=== PATIENT | male | born 1945 | race Caucasian/White ===

== ENCOUNTER 2022-12-30 20:38 | Inpatient (IN) | payer MEDICARE ==
[~2022-12-30 20:38] MED LIST: Iopamidol-370 76% 500 ML MDV (1 ML CHARGE) ONE
[2022-12-30] MEDS ORDERED: Dexamethasone 4 mg/ml Vial ONE (21:15)
[2022-12-30] MEDS ORDERED: Ondansetron PF 4 MG/2 ML Vial ONE (21:15)
[2022-12-30] MEDS ORDERED: Acetaminophen 325 MG/10.15 ML UDCUP ONE (21:36)
[2022-12-30 21:42] LABS: Actual Bicarbonate (HCO3a) 22.4 mEq/L (22-28); Base Excess (BEa) -0.3 mEq/L (-2.0 to +3.0); CO2 Tension 31.6 mmHg (35.0-45.0); Calcium, Ionized (arterial) 1.11 mmol/L (1.12-1.30); Carboxyhemoglobin (COHb) 0.7 gm% (0.0-3.0); Hematocrit-ABG 45 % (42.0-52.0); Hemoglobin (Hb) 15.2 g/dL (14.0-18.0); O2 Tension (PaO2), arterial 68.2 mmHg (> 70.0); Potassium - ABG Lab 3.31 mmol/L (3.70-5.30); pH, Arterial 7.469 (7.35-7.45)
[2022-12-30 21:43] LABS: Puncture Site RRA
[2022-12-30 21:50] LABS: #Basophils 0.1 thou/uL (0.0-0.2); #Monocytes 1.4 thou/uL (0.11-0.59); #Neutrophils 11.5 thou/uL (1.40-6.50); %Basophils 0.6 % (0.0-1.0); %Lymphocytes 9.1 % (21.0-51.0); Hemoglobin 14.9 g/dL (14.0-18.0); INR-International Normal Ratio 1.1; Mean Corpuscular HGB CONC 33.6 g/dL (32.0-36.0); Mean Corpuscular Volume 89.1 fl (78.0-98.0); Mean Platelet Volume 12.9 fL (7.4-10.4); Platelet Count 268 10x3/uL (130-400); Prothrombin Time 14.7 sec (12.0-14.7); RBC Distribution Width 13.7 % (11.5-14.5); Red Blood Cell (RBC) Count 4.97 mill/uL (4.70-6.10); White Blood Cell (WBC) Count 14.4 10x3/uL (4.8-10.8)
[2022-12-30 21:51] LABS: PTT 32.9 sec (22.9-36.1)
[2022-12-30 21:53] LABS: D-Dimer Test 0.72 *mcg/mL (0.27-0.43)
[2022-12-30] MEDS ORDERED: cefTRIAXone (ROCEPHIN) 2 GM VIAL ONE (23:01)
[2022-12-30 23:13] LABS: Albumin 3.9 g/dL (3.4-4.8)
[2022-12-30 23:14] LABS: Chloride 101 mmol/L (98-107); Potassium 3.4 mmol/L (3.5-5.1); Sodium 135 mmol/L (136-145)
[2022-12-30 23:15] LABS: Calcium 9.4 mg/dL (7.8-10.44)
[2022-12-30 23:16] LABS: Glucose 143 mg/dL (83-110); Protein, Total 6.9 g/dL (5.8-8.1)
[2022-12-30 23:17] LABS: Anion Gap 17 mmol/L (10-20); Carbon Dioxide 20 mmol/L (23-31)
[2022-12-30 23:18] LABS: Bilirubin, Total 0.4 mg/dL (0.2-1.2)
[2022-12-30 23:19] LABS: Alkaline Phosphatase 75 U/L (40-110); Calc. Creatinine Clearance 0 mL/min (70-130); Estimated GFR 90
[2022-12-30 23:20] LABS: BUN (Urea Nitrogen) 11 mg/dL (8.4-25.7)
[2022-12-30 23:21] LABS: AST (SGOT) 20 U/L (5-34)
[2022-12-30 23:22] LABS: ALT (SGPT) 19 U/L (8-55)
[2022-12-30 23:50] LABS: CKMB 2.8 ng/mL (0-6.6)
[2022-12-31] MEDS ORDERED: Aspirin Chewable 81 MG TAB ONE (00:06)
[2022-12-31] MEDS ORDERED: Azithromycin 500 MG VIAL ONE (00:06)
[2022-12-31] MEDS ORDERED: Albuterol 200 PUFF (6.7GM INHALER) INH PRN (00:26)
[2022-12-31] MEDS ORDERED: Ondansetron PF 4 MG/2 ML Vial IVP PRN (00:26)
[2022-12-31] MEDS ORDERED: Benzonatate 100 MG CAP PO PRN (00:26)
[2022-12-31] MEDS ORDERED: Ondansetron ODT 4 MG TAB PO PRN (00:26)
[2022-12-31] MEDS ORDERED: Acetaminophen 650 MG Suppository PR PRN (00:26)
[2022-12-31] MEDS ORDERED: Acetaminophen 325 MG TAB PO PRN (00:26)
[2022-12-31 00:57] LABS: Lactic Acid 1.8 mmol/L (0.5-2.2)
[2022-12-31 01:06] VITALS: BMI 10.5
[2022-12-31 01:06] LABS: Critical Call Chem Troponin I RESULT DECREASING; Troponin I 0.903 ng/mL (< 0.028)
[2022-12-31 02:40] LABS: SARS-CoV-2 NAA Rapid Test DETECTED (NotDetected)
[2022-12-31 04:21] LABS: #Basophils 0.1 thou/uL (0.0-0.2); #Monocytes 0.4 thou/uL (0.11-0.59); #Neutrophils 10.1 thou/uL (1.40-6.50); %Basophils 0.4 % (0.0-1.0); %Eosinophils 0.1 % (0.0-10.0); %Lymphocytes 11.8 % (21.0-51.0); %Neutrophils 84.4 % (42.0-75.0); Hemoglobin 15.3 g/dL (14.0-18.0); Mean Corpuscular HGB CONC 32.6 g/dL (32.0-36.0); Mean Corpuscular Hemoglobin 30.2 pg (27.0-31.0); Mean Platelet Volume 12.2 fL (7.4-10.4); Platelet Count 228 10x3/uL (130-400); RBC Distribution Width 13.8 % (11.5-14.5); Red Blood Cell (RBC) Count 5.07 mill/uL (4.70-6.10)
[2022-12-31 04:45] LABS: Anion Gap 19 mmol/L (10-20); BUN (Urea Nitrogen) 10 mg/dL (8.4-25.7); Calc. Creatinine Clearance 40 mL/min (70-130); Calcium 9.2 mg/dL (7.8-10.44); Carbon Dioxide 18 mmol/L (23-31); Chloride 104 mmol/L (98-107); Estimated GFR 91; Glucose 166 mg/dL (83-110); Potassium 4.7 mmol/L (3.5-5.1); Sodium 136 mmol/L (136-145)
[2022-12-31 04:47] LABS: Mean Corpuscular Volume 92.7 fl (78.0-98.0)
[2022-12-31 05:06] LABS: Critical Call Chem Troponin I RESULT DECREASING; Troponin I 0.737 ng/mL (< 0.028)
[2022-12-31] MEDS ORDERED: REMDESIVIR 200 MG in Sodium Chloride 0.9% 250 ML 210 ML IV SCH (09:00)
[2022-12-31] MEDS: Zinc Sulfate 220 MG CAP PO SCH (10:57)
[2022-12-31] MEDS: Ascorbic Acid 500 mg Chewable Tablet PO SCH (10:57)
[2022-12-31] MEDS: Dexamethasone 4 mg/ml Vial SLOW IVP SCH (10:58)
[2022-12-31] MEDS: Cholecalciferol (Vitamin D3) 400 UNITS TAB PO SCH (10:58)
[2022-12-31] MEDS ORDERED: levETIRAcetam 100 mg/ml Oral Solution PO SCH (12:30)
[2022-12-31] MEDS ORDERED: levETIRAcetam 500 mg/5 ml Oral Solution PO SCH (13:45)
[2022-12-31] MEDS: levETIRAcetam 500 mg/5 ml Oral Solution PO SCH (20:37)
[2022-12-31] MEDS: cefTRIAXone\\ROCEPHIN 1 GM in Sodium Chloride 0.9% 100 ML IVPB SCH (23:22)
[2023-01-01 04:20] LABS: #Monocytes 1.4 thou/uL (0.11-0.59); #Neutrophils 14.5 thou/uL (1.40-6.50); %Basophils 0.1 % (0.0-1.0); %Monocytes 7.8 % (0.0-10.0); %Neutrophils 81.6 % (42.0-75.0); Hemoglobin 13.2 g/dL (14.0-18.0); Mean Corpuscular HGB CONC 32.4 g/dL (32.0-36.0); Mean Corpuscular Hemoglobin 29.9 pg (27.0-31.0); Mean Corpuscular Volume 92.5 fl (78.0-98.0); Mean Platelet Volume 12.9 fL (7.4-10.4); Platelet Count 235 10x3/uL (130-400); RBC Distribution Width 13.6 % (11.5-14.5); Red Blood Cell (RBC) Count 4.41 mill/uL (4.70-6.10); White Blood Cell (WBC) Count 17.7 10x3/uL (4.8-10.8)
[2023-01-01 05:48] LABS: Potassium 3.7 mmol/L (3.5-5.1); Sodium 138 mmol/L (136-145)
[2023-01-01 05:49] LABS: Calcium 9.4 mg/dL (7.8-10.44); Glucose 151 mg/dL (83-110)
[2023-01-01 05:51] LABS: Anion Gap 18 mmol/L (10-20); Carbon Dioxide 20 mmol/L (23-31)
[2023-01-01 05:53] LABS: Calc. Creatinine Clearance 37 mL/min (70-130); Estimated GFR 89
[2023-01-01 05:54] LABS: BUN (Urea Nitrogen) 17 mg/dL (8.4-25.7)
[2023-01-01 06:06] LABS: Chloride 104 mmol/L (98-107)
[2023-01-01] MEDS: Cholecalciferol (Vitamin D3) 400 UNITS TAB PO SCH (08:55)
[2023-01-01] MEDS: Ascorbic Acid 500 mg Chewable Tablet PO SCH (08:55)
[2023-01-01] MEDS: Zinc Sulfate 220 MG CAP PO SCH (08:55)
[2023-01-01] MEDS: levETIRAcetam 500 mg/5 ml Oral Solution PO SCH ×2 (08:56→21:29)
[2023-01-01] MEDS: Dexamethasone 4 mg/ml Vial SLOW IVP SCH (08:58)
[2023-01-01] MEDS: REMDESIVIR 100 MG in Sodium Chloride 0.9% 250 ML 230 ML IV SCH (08:59)
[2023-01-01 10:33] LABS: Troponin I 0.546 ng/mL (< 0.028)
[2023-01-01] MEDS ORDERED: guaiFENesin ER 600 MG TAB PO SCH (11:45)
[2023-01-01] MEDS ORDERED: Atorvastatin Calcium 10 MG TAB PO SCH (21:00)
[2023-01-01] MEDS: guaiFENesin/DM ER PO SCH (21:28)
[2023-01-01] MEDS: cefTRIAXone\\ROCEPHIN 1 GM in Sodium Chloride 0.9% 100 ML IVPB SCH (23:55)
[2023-01-02 05:09] LABS: Troponin I 0.604 ng/mL (< 0.028)
[2023-01-02] MEDS ORDERED: Aspirin 81 mg Enteric Coated Tablet PO SCH (09:00)
[2023-01-02] MEDS ORDERED: Montelukast Sodium 10 mg Tablet PO SCH (09:00)
[2023-01-02] MEDS: Zinc Sulfate 220 MG CAP PO SCH (10:46)
[2023-01-02] MEDS: Ascorbic Acid 500 mg Chewable Tablet PO SCH (10:46)
[2023-01-02] MEDS: levETIRAcetam 500 mg/5 ml Oral Solution PO SCH (10:47)
[2023-01-02] MEDS: guaiFENesin/DM ER PO SCH (10:47)
[2023-01-02] MEDS: Dexamethasone 4 mg/ml Vial SLOW IVP SCH (10:47)
[2023-01-02] MEDS: REMDESIVIR 100 MG in Sodium Chloride 0.9% 250 ML 230 ML IV SCH (10:48)
[2023-01-02 11:24] VITALS: BP 178/82; TEMP 97.6
== END 2023-01-02 11:40 | disposition home or self-care (01) | DRG 177 ==
LOC: ERS 20:38 → 2NO 23:09 → OBSVTOIN 12-31 09:55
PROVIDERS: ADMIT Student in an Organized Health Care Education/Training Program; ATTEND Internal Medicine
PROC: 4A033R1 Measurement of Arterial Saturation, Peripheral, Percutaneous Approach (ICD-10-PCS; principal; 2022-12-30)
PROC: 3E0333Z Introduction of Anti-inflammatory into Peripheral Vein, Percutaneous Approach (ICD-10-PCS; 2022-12-31)
PROC: XW033E5 Introduction of Remdesivir Anti-infective into Peripheral Vein, Percutaneous Approach, New Technology Group 5 (ICD-10-PCS; 2022-12-31)
DX: U07.1 COVID-19 (principal); I21.A1 Myocardial infarction type 2; J12.82 Pneumonia due to coronavirus disease 2019; J96.01 Acute respiratory failure with hypoxia; I69.351 Hemiplegia and hemiparesis following cerebral infarction affecting right dominant side; E87.20 Acidosis, unspecified; E87.1 Hypo-osmolality and hyponatremia; G40.909 Epilepsy, unspecified, not intractable, without status epilepticus; I10 Essential (primary) hypertension; R47.1 Dysarthria and anarthria; E87.6 Hypokalemia; R77.8 Other specified abnormalities of plasma proteins; E78.00 Pure hypercholesterolemia, unspecified; F41.9 Anxiety disorder, unspecified; Z88.8 Allergy status to other drugs, medicaments and biological substances; Z79.82 Long term (current) use of aspirin; Z79.899 Other long term (current) drug therapy
CPT/HCPCS: 36415; 36416; 36600; 71045; 71275; 80048; 80053; 82553; 82805; 83605; 84484; 85025; 85379; 85610; 85730; 87040; 87149; 93005; 94760; 96361; 96365; 96367; 96372; 96375; G0378; J0248; J0456; J0696; J1100; J1650; J2405; J3490; J7050; Q9967; U0002